=== PATIENT | female | born 1995 | race Caucasian/White ===

== ENCOUNTER 2018-01-30 08:47 | Emergency (ER) | END 2018-01-30 11:40 | disposition home or self-care (01) ==

== ENCOUNTER 2019-04-07 14:11 | Emergency (ER) | payer BC, MEDICAID ==
[~2019-04-07] VITALS: Ht 160 cm; Wt 66.0 kg
[~2019-04-07 14:11] MED LIST: ACET500C5 PO; CEPH-443 PO; IBUP-1542 PO
[2019-04-07 14:20] VITALS: RESP 18; Ht 160 cm; Wt 66.0 kg
[2019-04-07] MEDS ORDERED: ACETAMINOPHEN 500 MG TAB PO STA (14:45)
[2019-04-07] MEDS ORDERED: ACET500C5 PO (14:46)
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
[2019-04-07 15:28] VITALS: BP 118/67; PULSE 87
== END 2019-04-07 15:29 | disposition home or self-care (01) ==
LOC: FTE 14:11
DX: R07.89 Other chest pain (principal)
CPT/HCPCS: Z7502; Z7610; 99282